=== PATIENT | male | born 1940 | race Caucasian/White ===

== ENCOUNTER → 2021-09-04 08:46 | Outpatient (BNVA) | payer MEDICAID, SELFPAY | PROVIDERS: PCP Internal Medicine; Visit Provider Nurse Practitioner Family | DX: F09 Unspecified mental disorder due to known physiological condition (principal); F41.1 Generalized anxiety disorder; C61 Malignant neoplasm of prostate; I10 Essential (primary) hypertension; Z79.899 Other long term (current) drug therapy | CPT/HCPCS: 99202 ==

== ENCOUNTER → 2021-12-10 10:44 | Outpatient (BNVA) | payer MEDICAID, SELFPAY | PROVIDERS: PCP Internal Medicine; Visit Provider Nurse Practitioner Family | DX: F09 Unspecified mental disorder due to known physiological condition (principal); F41.1 Generalized anxiety disorder; Z79.899 Other long term (current) drug therapy | CPT/HCPCS: 99212 ==

== ENCOUNTER → 2022-03-10 11:38 | Outpatient (BNVA) | payer MEDICAID, SELFPAY | PROVIDERS: PCP Internal Medicine; Visit Provider Nurse Practitioner Family | DX: F09 Unspecified mental disorder due to known physiological condition (principal); F41.1 Generalized anxiety disorder; M79.604 Pain in right leg | CPT/HCPCS: 99212 ==

== ENCOUNTER → 2022-08-25 12:58 | Outpatient (BNVA) | payer MEDICAID, SELFPAY | PROVIDERS: PCP Internal Medicine; Visit Provider Nurse Practitioner Family | DX: R41.89 Other symptoms and signs involving cognitive functions and awareness (principal); F41.1 Generalized anxiety disorder; Z79.899 Other long term (current) drug therapy | CPT/HCPCS: 99212 ==

== ENCOUNTER 2023-03-23 13:02 | Outpatient (AMB) | payer MEDICAID, SELFPAY ==
--- NOTE | 2023-03-23 13:07 | MHC.OFFVIS ---
Intake Vital Signs 03/23/23 13:09 Height 5 ft 2 in BP 102/68 Blood Pressure Location Rt brachial Position Sitting Respiration 15 Pulse 61 Pulse Source Pulse Oximeter Pulse Oximetry (%) 97 Oxygen Delivery Method Room Air Intake Visit Reasons: follow up/confirmed Intake Note: Pt presents to the office for 7 month follow up for cognitive dysfunction. Pt reports He was admitted to [facility] s/p stroke x2 as well as a brain bleed on January 09, 2023. He is here with his daughter Daja Renee who is also his historian. She reports he has been doing much better since his last visit. Gait had become slighty improved until his stroke. His memory, however, is worse. He's totally confused . He is still able to identify his daughter and , but it has become difficult for him to identify other people. His anxiety is worse too. He had been getting anxiety daily until last week when his PCP prescribed a new anxiety med. He has also been very nauseous. Allergies ibuprofen [From Motrin] Adverse Reaction (Mild, Verified 03/23/23 13:08) Abdominal Pain Medication List - Last Reconciled 03/23/23 by KEVIN Ferguson amlodipine 5 mg PO DAILY apixaban (Eliquis) 2.5 mg PO BID cetirizine 10 mg PO DAILY diclofenac sodium 3% 1 appl topical BID PRN 30 days diphenoxylate-atropine 2.5-0.025 mg 2 tabs PO QID escitalopram oxalate 20 mg PO DAILY 90 days flurbiprofen sodium 0.03% 1 drp ophthalmic (eye) QAM ipratropium-albuterol 20-100 mcg/actuation (Combivent Respimat) 1 puff PO QID latanoprost 0.005% 1 drp ophthalmic (eye) BEDTIME lidocaine 5% (Lidoderm) 1 patch topical DAILY 30 days lorazepam 0.5 mg PO BEDTIME PRN losartan 50 mg PO DAILY meclizine 25 mg PO DAILY PRN memantine 7 mg PO DAILY 90 days montelukast 10 mg PO BEDTIME omeprazole 20 mg PO DAILY ondansetron 4 mg PO Q8H timolol maleate 0.5% 1 drp ophthalmic (eye) QAM HPI HPI Comments History of Present Illness Details 82-yr-old male presents for f/u visit, accompanied by his dtr and . Pt's dtr provides majority of history. Drt states that in early Jan, pt began to have acute onset of not feeling well, dizziness, and N/V w/o preceding known infection or injury. Pt was brought to [facility] ER, where work-up was c/w an intraventricular hemorhagic stroke and right splenium and left temporal infarct, as well as multiple punctuate hemosiderin staining throughout bilateral supratentorial and infratentorial brain regions and mild hydrocephalus. There was mention of possible a-fib when pt was in ICU- however this was not confirmed. Pt was managed medically and discharged home in mid-Jan. Pt's dtr stated that pt had become very weak after the hospitalization, but he was starting to return to his baseline. However, in early Feb, pt had an acute episode of dyspnea and near syncope- dtr thought he might , so he was brought back to [facility]. Work-up was positive for acute PE. Brain MRI showed reduction in previous IVH. Pt was managed medically- ASA was switched to Eliquis. Pt has since returned home w/ VNA services. Since returning home, pt has continued to have significant nausea and dizziness, especially elicited w/ movement. PCP has provided zofran and meclizine which do help and he can get around better. Pt is more photophobic. Today he does endorse a having more headaches, although unable to provide specifics d/t memory issues. He is still needing more assist overall. He is very anxious and worried that he can not travel to the to visit his dtr who has special needs. Denies any other new s/s since the CVAs and PE- no dysphagia. BP has been stable. Pt is scheduled for a f/u brain MRI. 02/06/23, Chest CTA IMPRESSION: 1. Acute pulmonary embolism. The right ventricle is enlarged compared to the left ventricle, which would meet CT criteria for submassive PE; however, given small clot burden, the etiology for right ventricular enlargement is thought to be unrelated. 2. Mild diffuse esophagitis. 3. Lung nodules measuring 5 mm and 6 mm. Follow-up CT at 6-12 months, then CT at 18-24 months and if unchanged no further followup per Guidelines for Management of Incidental Pulmonary Nodules Detected on CT Images: From the Fleischner [employer] 02/05/23, Brain MRI w/o IMPRESSION: 1. No acute infarct, mass, new hemorrhage, or other acute intracranial abnormality. 2. Decreased conspicuity of previously seen infarcts in the right splenium and left medial temporal lobe, consistent with expected evolution. 3. Interval decrease in focal hemorrhage in the cerebellar vermis. There is residual 1 cm T1 hypointense focus in the cerebellar vermis which could reflect an underlying cavernous malformation, though accurate characterization is slightly suboptimal due to motion artifact. 4. Multiple sites of chronic hemorrhage in bilateral cerebral hemispheres, including areas of sulcal susceptibility artifact suggesting superficial siderosis. Findings could reflect sequela of cerebral amyloid angiopathy. 5. Mild T2/FLAIR hyperintense foci in the white matter, nonspecific but most likely reflecting chronic small vessel disease. 01/12/23, MRI Brain W+W/O Contrast IMPRESSION: There is an approximately 1.2 x 1.2 x 1 cm irregular shaped hemorrhagic lesion within the vermis of the cerebellum. This lesion shows mild heterogeneous enhancement. Although although this could be due to hypertension, however an underlying hemorrhagic tumor or vascular malformation cannot be excluded. Repeat study is suggested when the hematoma and mass effect subside. There is a 5 mm area of acute infarct within the right-sided splenium of corpus callosum and left medial temporal white matter respectively. No associated hemorrhage or significant mass effect. Addendum: Multiple punctate hemosiderin are seen throughout the supratentorial and infratentorial brain which could be due to old hemorrhages. 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 There are also hemosiderin staining along the sulci of bilateral frontoparietal lobes as well as in the dependent portion of bilateral lateral ventricles which could represent hemosiderosis. 01/09/23, head/neck CTA: IMPRESSION: 1. Intraventricular hemorrhage, centered in the fourth ventricle, without evidence of associated aneurysm or vascular malformation. 2. No proximal occlusion or high grade stenosis in the major arteries of the head and neck. 01/09/23, head CT: IMPRESSION: Intraventricular hemorrhage involving the third and fourth ventricles. [facility] Medical History (Updated 03/23/23 @ 22:43 by KEVIN Ferguson) Colonic polyp Hypertension Prostate cancer Literacy level of illiterate Pulmonary nodules/lesions, multiple GERD (gastroesophageal reflux disease) Chronic diarrhea Seasonal allergies Vitamin D deficiency Surgical History (Updated 03/23/23 @ 13:24 by Tresa Jhaveri [facility]) H/O colonoscopy History of eye surgery History of cancer surgery Hx of sinus surgery Family History Other Cancer Social History Household Members: Family Household Members Other:: daughter Alcohol intake: former Patient Tobacco Use Status: Former Tobacco user Current occupational status: retired and disabled Review of Systems Const All systems reviewed & are unremarkable except as noted in HPI and below Physical Exam Vital Signs: Last Vital Signs Pulse 61 03/23/23 13:09 Resp 15 03/23/23 13:09 BP 102/68 03/23/23 13:09 Pulse Ox 97 03/23/23 13:09 Oxygen Delivery Method Room Air 03/23/23 13:09 Const General: cooperative and no acute distress Orientation/consciousness: oriented to person HEENT Head: Yes normocephalic Resp Effort & Inspection: normal respiratory effort and able to speak in complete sentences Neuro General: oriented to person, gait normal and deep tendon reflexes 2+ bilaterally Cranial nerves: Yes Individual cranial nerve findings present (Pupils asymmetric, legally blind in left eye) V: normal, : normal, VII: abnormal (lower facial assymetry), VIII: normal, IX: normal, X: normal, XI: normal and XII: normal Cognition (Neuro): normal cognition Motor exam (neuro): 5/5 motor strength present throughout Psych Appearance: grossly normal Affect: normal affect Attitude: cooperative Assessment & Plan Assessment & Plan (1) Non-traumatic intracerebral ventricular hemorrhage: Code(s): I61.5 - Nontraumatic intracerebral hemorrhage, intraventricular (2) CVA (cerebral vascular accident): Code(s): I63.9 - Cerebral infarction, unspecified (3) [place] (generalized anxiety disorder): Code(s): F41.1 - Generalized anxiety disorder (4) Dementia: Code(s): F03.90 - Unspecified dementia, unspecified severity, without behavioral disturbance, psychotic disturbance, mood disturbance, and anxiety (5) Headache: Comment: post-stroke Code(s): R51.9 - Headache, unspecified (6) Dizziness: Code(s): R42 - Dizziness and giddiness (7) Pulmonary embolism: Code(s): I26.99 - Other pulmonary embolism without acute cor pulmonale Plan Reviewed [facility] notes and work-up. F/u brain MRI as scheduled. Continue Eliquis for now. Continue home BP med regimen- BP is normotensive. Reviewed light sensitivity tips. Start Riboflavin and Magnesium- may help headcahes and photophobia. May continue Meclizine, Zofran, Tylenol prn. Advised to avoid any NSAIDs. Advised to seek urgent medical attention if pt falls, hits head etc d/t Eliquis use. Pt would benefit from being able to see his dtr- however I cannot clear pt medically to travel long distance or via plane at this time. Dtr asks that we write letter to this effect. f/u in clinic in 3 months or sooner prn. Medications: New riboflavin (vitamin B2) 400 mg PO DAILY 30 days 30 tabs 6RF magnesium oxide may hold for loose stools 400 mg PO BEDTIME 30 days 30 tabs 6RF Coding Level of Care Code Est Pt Level 5 (02848) Diagnoses Non-traumatic intracerebral ventricular hemorrhage I61.5 CVA (cerebral vascular accident) I63.9 [place] (generalized anxiety disorder) F41.1 Dementia F03.90 Headache R51.9 Dizziness R42 Pulmonary embolism I26.99 Time Spent (min) 65 Comment > 45 minutes spent w/ pt and family, > 20 min spent reviewing hospital records/documenting
[2023-03-23 13:09] VITALS: BP 102/68; PULSE 61; RESP 15; O2SAT 97
== END 2023-03-23 13:59 | disposition home or self-care (01) ==
PROVIDERS: PCP Internal Medicine; Visit Provider Nurse Practitioner Family
DX: I69.111 Memory deficit following nontraumatic intracerebral hemorrhage (principal); I69.118 Other symptoms and signs involving cognitive functions following nontraumatic intracerebral hemorrhage; F03.94 Unspecified dementia, unspecified severity, with anxiety; I26.99 Other pulmonary embolism without acute cor pulmonale; R42 Dizziness and giddiness
CPT/HCPCS: 99215

== ENCOUNTER → 2023-03-23 13:02 | Outpatient (BNVA) | payer MEDICAID, SELFPAY | PROVIDERS: PCP Internal Medicine; Visit Provider Nurse Practitioner Family | DX: I61.5 Nontraumatic intracerebral hemorrhage, intraventricular (principal); I26.99 Other pulmonary embolism without acute cor pulmonale; F41.1 Generalized anxiety disorder; F03.90 Unspecified dementia, unspecified severity, without behavioral disturbance, psychotic disturbance, mood disturbance, and anxiety; R51.9 Headache, unspecified; R42 Dizziness and giddiness; Z86.73 Personal history of transient ischemic attack (TIA), and cerebral infarction without residual deficits | CPT/HCPCS: 99212 ==

== ENCOUNTER 2023-07-05 13:00 | Outpatient (AMB) | payer MEDICAID, SELFPAY ==
[2023-07-05 13:07] VITALS: PULSE 56; O2SAT 98
--- NOTE | 2023-07-05 13:07 | MHC.OFFVIS ---
Intake Vital Signs 07/05/23 13:07 Height 5 ft 2 in Pulse 56 Pulse Source Pulse Oximeter Pulse Oximetry (%) 98 Oxygen Delivery Method Room Air Intake Visit Reasons: 3 mnts f/u appt - CONF Intake Note: Patient presents for 3 month follow up. He wasn't sleeping well so the doctor put him on 5mg of melatonin Allergies ibuprofen [From Motrin] Adverse Reaction (Mild, Verified 07/05/23 13:11) Abdominal Pain HPI HPI Comments History of Present Illness Details 83-yr-old male presents for f/u visit, accompanied by his dtr. Pt has been doing better overall. However he can become more stressed and anxious, especially as his daughter will be returning to the [facility] [place]. Patient would like to be able to return to the [facility] himself. Cognition is stable- can be confused. Does need help w/ ADLs. He has started Melatonin for sleep. 04/26/23, [facility], MRI Brain W+W/O Contrast: FINDINGS: The ventricles, cistern and sulci are diffusely prominent, consistent with generalized age-related atrophy. There is no acute intracranial hemorrhage, tumor or acute infarct. Multiple curvilinear areas of susceptibility artifacts are seen within bilateral cerebral sulci consistent with the superficial siderosis which could be due to prior subarachnoid hemorrhages. Additional punctate areas of microhemorrhages are seen within bilateral cerebral hemispheres. There is a focal small area of susceptibility artifacts within the cerebellum vermis which could be due to prior hemorrhage. Multiple patchy and small areas of hyperintense T2 and FLAIR signals are seen in the periventricular and subcortical white matters bilaterally, which are nonspecific but may represent chronic small vessels ischemic disease. Please correlate clinically. No abnormal enhancement is seen. The findings remain unchanged as compared to prior study. There are normal flow voids within the major intracranial vessels. Status post prior maxillary antrectomies. There is mild mucosal thickening within frontal, ethmoid and maxillary sinuses. These sinuses also contain multiple mucus retention cysts of various sizes. Bilateral mastoid air cells are clear. IMPRESSION: No acute pathology or abnormal enhancement is seen in the brain parenchyma. Chronic findings as described above, stable. [facility] Medical History (Updated 03/23/23 @ 22:43 by KEVIN Ferguson) Colonic polyp Hypertension Prostate cancer Literacy level of illiterate Pulmonary nodules/lesions, multiple GERD (gastroesophageal reflux disease) Chronic diarrhea Seasonal allergies Vitamin D deficiency Surgical History H/O colonoscopy History of eye surgery History of cancer surgery Hx of sinus surgery Family History Other Cancer Social History Household Members: Family Household Members Other:: daughter Alcohol intake: former Patient Tobacco Use Status: Former Tobacco user Current occupational status: retired and disabled Physical Exam Vital Signs: Last Vital Signs Pulse 56 07/05/23 13:07 Pulse Ox 98 07/05/23 13:07 Oxygen Delivery Method Room Air 07/05/23 13:07 Const General: cooperative and no acute distress Resp Effort & Inspection: normal respiratory effort and able to speak in complete sentences Neuro Other: Oriented to person Responding appropriately to simple questions Sitting upright in wheelchair Pleasant affect Psych Appearance: grossly normal Affect: normal affect Attitude: cooperative Assessment & Plan Assessment & Plan (1) Dementia: Code(s): F03.90 - Unspecified dementia, unspecified severity, without behavioral disturbance, psychotic disturbance, mood disturbance, and anxiety (2) Headache: Comment: post-stroke Code(s): R51.9 - Headache, unspecified (3) Dizziness: Code(s): R42 - Dizziness and giddiness Plan Reviewed interval brain MRI- no acute findings. Stable findings c/w superficial siderosis which could be due to prior subarachnoid hemorrhages; punctate areas of microhemorrhages in bilateral cerebral hemispheres, and possibly in the cerebellum vermis.. Multiple patchy and small areas of hyperintense T2 and FLAIR signals in the periventricular and subcortical white matters bilaterally, which are c/w chronic small vessels ischemic disease. May use Melatonin for sleep. Continue Eliquis for now. Continue home BP med regimen- BP is normotensive. Continue Riboflavin and Magnesium- for headaches and photophobia. May continue Meclizine, Zofran, Tylenol prn. Avoid any NSAIDs. f/u in clinic in 3 months or sooner prn. Coding Level of Care Code Est Pt Level 4 (32948) Diagnoses Dementia F03.90 Headache R51.9 Dizziness R42
== END 2023-07-05 13:55 | disposition home or self-care (01) ==
PROVIDERS: PCP Internal Medicine; Visit Provider Nurse Practitioner Family
DX: F03.90 Unspecified dementia, unspecified severity, without behavioral disturbance, psychotic disturbance, mood disturbance, and anxiety (principal); R51.9 Headache, unspecified; R42 Dizziness and giddiness
CPT/HCPCS: 99214

== ENCOUNTER → 2023-07-05 13:00 | Outpatient (BNVA) | payer MEDICAID, SELFPAY | PROVIDERS: PCP Internal Medicine; Visit Provider Nurse Practitioner Family | DX: F03.90 Unspecified dementia, unspecified severity, without behavioral disturbance, psychotic disturbance, mood disturbance, and anxiety (principal); R51.9 Headache, unspecified; R42 Dizziness and giddiness; Z79.01 Long term (current) use of anticoagulants; Z79.899 Other long term (current) drug therapy | CPT/HCPCS: 99212 ==

== ENCOUNTER 2023-11-01 13:00 | Outpatient (AMB) | payer MEDICAID, SELFPAY ==
--- NOTE | 2023-11-01 13:09 | MHC.OFFVIS ---
Vital Signs 11/01/23 13:10 Height 5 ft 2 in BP 102/76 Blood Pressure Location Rt brachial Position Sitting Pulse 61 Pulse Source Pulse Oximeter Pulse Oximetry (%) 100 Oxygen Delivery Method Nasal Cannula Intake Visit Reasons: 4 mo f/u-LVM Intake Note: Patient presents for 4 month follow up. three days ago he was not okay deressed and crying alot. Dry Chain Worker Required: Yes Dry Chain Worker Name: ilbia pagan Allergies ibuprofen [From Motrin] Adverse Reaction (Mild, Verified 11/01/23 13:17) Abdominal Pain Medication List - Last Reconciled 11/01/23 by Freda Mueller, KEVIN amlodipine 5 mg PO DAILY apixaban (Eliquis) 2.5 mg PO BID cetirizine 10 mg PO DAILY diclofenac sodium 3% 1 appl topical BID PRN 30 days diphenoxylate-atropine 2.5-0.025 mg 2 tabs PO QID escitalopram oxalate 20 mg PO DAILY 90 days flurbiprofen sodium 0.03% 1 drp ophthalmic (eye) QAM ipratropium-albuterol 20-100 mcg/actuation (Combivent Respimat) 1 puff PO QID latanoprost 0.005% 1 drp ophthalmic (eye) BEDTIME lidocaine 5% (Lidoderm) 1 patch topical DAILY 30 days lorazepam 0.5 mg PO BEDTIME PRN losartan 50 mg PO DAILY magnesium oxide 400 mg PO BEDTIME 30 days meclizine 25 mg PO DAILY PRN memantine 7 mg PO DAILY 90 days montelukast 10 mg PO BEDTIME omeprazole 20 mg PO DAILY ondansetron 4 mg PO Q8H riboflavin (vitamin B2) 400 mg PO DAILY 30 days timolol maleate 0.5% 1 drp ophthalmic (eye) QAM HPI Comments Details: 83-yr-old male presents for f/u visit, accompanied by his and dtr. Pt was started on home supplemental O2 for hypoxemia induced by activity. As he continues to have hypoxemia and SOB at times s/p PE in Feb 2023. Per dtr, Today, dtr states today pt is doing well. However, overall his cognition and behavior is worsening. A few days ago, he was crying most of the time. He was not eating, drinking, and sleeping well. When he is more confused he does know where the bathroom or bedroom is. He often wants to leave, to return to the [place] where his dtr is. He has periods of more irritability and anger- refusing meds/food/fluids at times. Last week, he stood outside for 4 hours in the hot weather- hoping to be able to leave. Family was unable to redirect him to come inside for those hours- he would not take fluids or food during this time. [facility] Medical History (Updated 03/23/23 @ 22:43 by KEVIN Ferguson) Colonic polyp Hypertension Prostate cancer Literacy level of illiterate Pulmonary nodules/lesions, multiple GERD (gastroesophageal reflux disease) Chronic diarrhea Seasonal allergies Vitamin D deficiency Surgical History H/O colonoscopy History of eye surgery History of cancer surgery Hx of sinus surgery Family History Other Cancer Social History Household Members: Family Household Members Other:: daughter Alcohol intake: former Patient Tobacco Use Status: Former Tobacco user Current occupational status: retired and disabled Physical Exam Vital Signs: Last Vital Signs Pulse 61 11/01/23 13:10 BP 102/76 11/01/23 13:10 Pulse Ox 100 11/01/23 13:10 Oxygen Delivery Method Nasal Cannula 11/01/23 13:10 Const General: cooperative and no acute distress Orientation/consciousness: oriented to person Resp Effort & Inspection: normal respiratory effort and able to speak in complete sentences Neuro General: oriented to person Cognition (Neuro): normal cognition Psych Appearance: grossly normal Affect: normal affect Attitude: cooperative Assessment & Plan Assessment & Plan (1) Cognitive dysfunction: Comment: STM loss, repeating, ? confusion vs visual hallucination- ? Roland Bonnet Syndrome. Brain MRI w/ moderate white matter changes and cerebral volume loss- raises suspicion for vascular dementia process. Code(s): F09 - Unspecified mental disorder due to known physiological condition Category: Medical (2) Dementia: Code(s): F03.90 - Unspecified dementia, unspecified severity, without behavioral disturbance, psychotic disturbance, mood disturbance, and anxiety Category: Medical (3) CVA (cerebral vascular accident): Code(s): I63.9 - Cerebral infarction, unspecified Category: Medical (4) [place] (generalized anxiety disorder): Code(s): F41.1 - Generalized anxiety disorder Category: Medical Plan Will request f/u brain MRI w/wo- as cognition and behaviors is worsening, to assess for interval intracerebral changes in superficial siderosis, white matter changes. Advised to increase Memantine fro 7mg to 14mg qd. Will f/u in 3-4 wks, if tolerated, increase the dose. Pulmonary f/u as scheduled. Home O2 as ordered. Continue Amlodipine, losartan, Eliquis. BP normotensive. Continue 27/12 supportive care. Future considerations- adding anti-anxiety agent. f/u in 3-6 months or sooner prn, Orders: Orders MR head/brain wo/w con Today F03.90 - Unspecified dementia, unspecified severity, without behavioral disturbance, psychotic disturbance, mood disturbance, and anxiety, F09 - Unspecified mental disorder due to known physiological condition, F41.1 - Generalized anxiety disorder, I63.9 - Cerebral infarction, unspecified Medications: New memantine 14 mg PO DAILY 30 days 30 ea 0RF Discontinued memantine Discontinued Reason: Doctor's Order 7 mg PO DAILY 90 days 90 ea 1RF Coding Level of Care Code Est Pt Level 4 (87242) Diagnoses Cognitive dysfunction F09 Dementia F03.90 CVA (cerebral vascular accident) I63.9 [place] (generalized anxiety disorder) F41.1
[2023-11-01 13:10] VITALS: BP 102/76; PULSE 61; O2SAT 100
== END 2023-11-01 13:48 | disposition home or self-care (01) ==
PROVIDERS: PCP Internal Medicine; Visit Provider Nurse Practitioner Family
DX: F01.54 Vascular dementia, unspecified severity, with anxiety (principal); F01.518 Vascular dementia, unspecified severity, with other behavioral disturbance; I69.30 Unspecified sequelae of cerebral infarction
CPT/HCPCS: 99214

== ENCOUNTER → 2023-11-01 13:00 | Outpatient (BNVA) | payer MEDICAID, SELFPAY | PROVIDERS: PCP Internal Medicine; Visit Provider Nurse Practitioner Family | DX: F09 Unspecified mental disorder due to known physiological condition (principal); F03.90 Unspecified dementia, unspecified severity, without behavioral disturbance, psychotic disturbance, mood disturbance, and anxiety; I63.9 Cerebral infarction, unspecified; F41.1 Generalized anxiety disorder | CPT/HCPCS: 99212 ==

== ENCOUNTER 2024-02-02 13:37 | Outpatient (AMB) | payer MEDICAID, SELFPAY ==
--- NOTE | 2024-02-02 13:51 | MHC.OFFVIS ---
Vital Signs 02/02/24 13:59 Height 5 ft 2 in BP 122/84 Blood Pressure Location Rt brachial Position Sitting Pulse 61 Pulse Source Pulse Oximeter Pulse Oximetry (%) 97 Oxygen Delivery Method Room Air Intake Visit Reasons: 3 month F/U - Conf Intake Note: Patient presents for 3 month follow up. patient had anxiety attacks for the past couple days wanting to open doors and leave Allergies ibuprofen [From Motrin] Adverse Reaction (Mild, Verified 02/02/24 13:59) Abdominal Pain Medication List - Last Reconciled 02/02/24 by KEVIN Ferguson amlodipine 5 mg PO DAILY apixaban (Eliquis) 2.5 mg PO BID cetirizine 10 mg PO DAILY diclofenac sodium 3% 1 appl topical BID PRN 30 days diphenoxylate-atropine 2.5-0.025 mg 2 tabs PO QID escitalopram oxalate 20 mg PO DAILY 90 days flurbiprofen sodium 0.03% 1 drp ophthalmic (eye) QAM ipratropium-albuterol 20-100 mcg/actuation (Combivent Respimat) 1 puff PO QID latanoprost 0.005% 1 drp ophthalmic (eye) BEDTIME lidocaine 5% (Lidoderm) 1 patch topical DAILY 30 days lorazepam 0.5 mg PO BEDTIME PRN losartan 50 mg PO DAILY magnesium oxide 400 mg PO BEDTIME 30 days meclizine 25 mg PO DAILY PRN melatonin 5 - 10 mg (1 - 2 x 5 mg) PO BEDTIME PRN 90 days memantine 28 mg PO DAILY 90 days montelukast 10 mg PO BEDTIME omeprazole 20 mg PO DAILY ondansetron 4 mg PO Q8H quetiapine 12.5 - 25 mg (0.5 - 1 x 25 mg) PO BID PRN 90 days riboflavin (vitamin B2) 400 mg PO DAILY 90 days timolol maleate 0.5% 1 drp ophthalmic (eye) QAM HPI Comments Details: 83-yr-old male presents for f/u visit. Pt's dtr reports pt's memory is better since starting Memantine ER. He has slowly increased the dose from 7mg ER to 21mg ER, which he is tolerating well. Pt's dtr reports he has some better days and other days that are not as good. Pt does have days where he is more forgetful, may misplace some of his things. He has had episodes of increased anxiety- his O2 and HR reduces, and he becomes more confused and weak. Dtr gives him some sugar or apple juice which helps. He has been hallucinating less since starting Quetiapine 12.5mg qhs. Rarely has used extra 1/2 tab in am if very agitated or hallucinating. Sometimes, he has RLQ to LLQ abd discomfort. Does have BMs. Sometimes has abd bloating. His family has signed a DNR form. Pt would still like to [place] 11/[place], Brain MRI w/wo: IMPRESSION: Punctate subacute infarcts in the right temporal and occipital region. Since the previous exam, numerous (more than 10) scattered punctate chronic microhemorrhage is noted throughout the supratentorial compartment, suggesting cerebral amyloid angiopathy. The areas of superficial siderosis as well as several other scattered microhemorrhages as well as old hemorrhage versus a cavernous malformation in the superior cerebellar vermis are stable compared to the previous exam. Findings suggest underlying cerebral amyloid angiopathy. Nonspecific white matter signal changes most likely reflecting chronic small vessel disease which are similar to prior. [facility] Medical History (Updated 03/23/23 @ 22:43 by KEVIN Ferguson) Colonic polyp Hypertension Prostate cancer Literacy level of illiterate Pulmonary nodules/lesions, multiple GERD (gastroesophageal reflux disease) Chronic diarrhea Seasonal allergies Vitamin D deficiency Surgical History H/O colonoscopy History of eye surgery History of cancer surgery Hx of sinus surgery Family History Other Cancer Social History Household Members: Family Household Members Other:: daughter Alcohol intake: former Patient Tobacco Use Status: Former Tobacco user Current occupational status: retired and disabled Review of Systems Const All systems reviewed & are unremarkable except as noted in HPI and below Physical Exam Vital Signs: Last Vital Signs Pulse 61 02/02/24 13:59 BP 122/84 02/02/24 13:59 Pulse Ox 97 02/02/24 13:59 Oxygen Delivery Method Room Air 02/02/24 13:59 Const General: cooperative and no acute distress Resp Effort & Inspection: normal respiratory effort and able to speak in complete sentences Neuro Other: Pt Alert, responding appropriately to simple questions. Pt able to ask simple questions. Sitting upright in w/c. Psych Attitude: cooperative Assessment & Plan Assessment & Plan (1) Dementia: Code(s): F03.90 - Unspecified dementia, unspecified severity, without behavioral disturbance, psychotic disturbance, mood disturbance, and anxiety Category: Medical (2) Non-traumatic intracerebral ventricular hemorrhage: Code(s): I61.5 - Nontraumatic intracerebral hemorrhage, intraventricular Category: Medical (3) CVA (cerebral vascular accident): Code(s): I63.9 - Cerebral infarction, unspecified Category: Medical Plan Updated brain MRI results c/w Cerebral amyloid angiopathy Pt is on low dose Eliquis per hematology for h/o mx PEs. Continue home ant-HTN tx. BP is normotensive. Recent lipid panel shows mildly elevated lipids- monitor. If worsens consider adding statin. Increase Memantine from 21mg qd to 28mg qd. Continue quetiapine 12.5mg qhs and 12.5mg qd prn. Continue Melatonin 5-10mg qhs. Pulmonary f/u as scheduled. Home O2 as ordered. Continue 24/ supportive care. Pt asking if he can fly to the [place]- advised that will known CAA there is risk for hemorrhagic stroke. Medications: New memantine 28 mg PO DAILY 90 ea 1RF 90 days Changed From quetiapine 12.5 - 25 mg (0.5 - 1 x 25 mg) PO BID 30 days PRN 30 tabs 3RF agitation or hallucinations To quetiapine 12.5 - 25 mg (0.5 - 1 x 25 mg) PO BID PRN 90 tabs 1RF agitation or hallucinations 90 days Discontinued memantine Discontinued Reason: Doctor's Order 21 mg PO ONCE 90 days 90 ea 1RF Coding Level of Care Code Est Pt Level 4 (41379) Diagnoses Dementia F03.90 Non-traumatic intracerebral ventricular hemorrhage I61.5 CVA (cerebral vascular accident) I63.9
[2024-02-02 13:59] VITALS: BP 122/84; PULSE 61; O2SAT 97
== END 2024-02-02 14:45 | disposition home or self-care (01) ==
PROVIDERS: PCP Internal Medicine; Visit Provider Nurse Practitioner Family
DX: F03.90 Unspecified dementia, unspecified severity, without behavioral disturbance, psychotic disturbance, mood disturbance, and anxiety (principal); I61.5 Nontraumatic intracerebral hemorrhage, intraventricular; I63.9 Cerebral infarction, unspecified
CPT/HCPCS: 99214

== ENCOUNTER → 2024-02-02 13:37 | Outpatient (BNVA) | payer MEDICAID, SELFPAY | PROVIDERS: PCP Internal Medicine; Visit Provider Nurse Practitioner Family | DX: F03.90 Unspecified dementia, unspecified severity, without behavioral disturbance, psychotic disturbance, mood disturbance, and anxiety (principal); I61.5 Nontraumatic intracerebral hemorrhage, intraventricular; I63.9 Cerebral infarction, unspecified | CPT/HCPCS: 99212 ==

== ENCOUNTER 2025-01-01 11:48 | Outpatient (AMB) | payer MEDICAID, SELFPAY ==
--- NOTE | 2025-01-01 08:35 | A.OFFVIS_ITS ---
Intake Visit Reasons: Follow up Intake Note: Patient presents follow up Dementia medication. His anxiety is better. No concerns today, but needs refills. Patient will be accompanied with granddaughter, Maryjane. [employer] Required: Yes Director [employer] Services: [employer] Offered & Declined [employer] Name: Granddtr assists w/ interpreta Allergies ibuprofen (From Motrin) Adverse Reaction (Mild, Verified 01/01/25 11:31) Abdominal Pain Medication List - Last Reconciled 01/01/25 by KEVIN Ferguson amlodipine 5 mg PO DAILY apixaban (Eliquis) 2.5 mg PO BID calcium carbonate (Tums) 400 mg (2 x 200 mg calcium (500 mg)) PO Q4-6H PRN 30 days cetirizine 10 mg PO DAILY diclofenac sodium 3% 1 appl topical BID PRN 30 days diphenoxylate-atropine 2.5-0.025 mg 2 tabs PO QID escitalopram oxalate 20 mg PO DAILY 90 days flurbiprofen sodium 0.03% 1 drp ophthalmic (eye) QAM hydralazine 10 mg PO BID ipratropium-albuterol 20-100 mcg/actuation (Combivent Respimat) 1 puff PO QID latanoprost 0.005% 1 drp ophthalmic (eye) BEDTIME lidocaine 5% (Lidoderm) 1 patch topical DAILY 30 days lorazepam 0.5 mg PO BEDTIME PRN losartan 50 mg PO DAILY magnesium oxide 400 mg PO BEDTIME 90 days meclizine 25 mg PO DAILY PRN melatonin 5 - 10 mg (1 - 2 x 5 mg) PO BEDTIME PRN 90 days memantine 28 mg PO DAILY 90 days mirabegron ER (Myrbetriq) 25 mg PO DAILY montelukast 10 mg PO BEDTIME omeprazole 20 mg PO DAILY ondansetron 4 mg PO Q8H pantoprazole 40 mg PO DAILY quetiapine 12.5 - 25 mg (0.5 - 1 x 25 mg) PO BID PRN 90 days riboflavin (vitamin B2) 400 mg PO DAILY 90 days tamsulosin 0.4 mg PO DAILY timolol maleate 0.5% 1 drp ophthalmic (eye) QAM HPI Comments Details: 84-yr-old male presents for f/u televideo visit for dementia. Pt is accompanied by his grandtr, Maryjane, who assists w/ history. They report pt?s memory is stable on Memantine er 28mg qd. LTM is better than STM. They report pt?s episodes of anxiety and agitation have reduced in frequency and severity. Granddtr offers massage, breathing exercises, and Oxygen, which is helpful. He has been hallucinating less since starting Quetiapine 12.5mg qhs. Rarely has used extra 1/2 tab in am if very agitated or hallucinating. Continues to have abd bloating- using scheduled omeprazole w/ some effect. Can have some headaches and neck discomfort- has not had the B2 and Mag in a while. For chronic back pain, using diclofenac gel or lidocaine patches as needed-which helps some. His family has signed a DNR form. 11/2023, Brain MRI w/wo: IMPRESSION: Punctate subacute infarcts in the right temporal and occipital region. Since the previous exam, numerous (more than 10) scattered punctate chronic microhemorrhage is noted throughout the supratentorial compartment, suggesting cerebral amyloid angiopathy. The areas of superficial siderosis as well as several other scattered microhemorrhages as well as old hemorrhage versus a cavernous malformation in the superior cerebellar vermis are stable compared to the previous exam. Findings suggest underlying cerebral amyloid angiopathy. Nonspecific white matter signal changes most likely reflecting chronic small vessel disease which are similar to prior. [facility] Medical History Colonic polyp Hypertension Prostate cancer Literacy level of illiterate Pulmonary nodules/lesions, multiple GERD (gastroesophageal reflux disease) Chronic diarrhea Seasonal allergies Vitamin D deficiency Surgical History H/O colonoscopy History of eye surgery History of cancer surgery Hx of sinus surgery Family History Other Cancer Social History Household Members: Family Household Members Other:: daughter Alcohol intake: former Patient Tobacco Use Status: Former Tobacco user Current occupational status: retired and disabled Physical Exam Const General: cooperative and no acute distress Resp Effort & Inspection: normal respiratory effort and able to speak in complete sentences Neuro Other: Pt Alert, responding appropriately to simple questions. Pt able to ask simple questions. Sitting upright on couch Psych Attitude: cooperative Telehealth Telehealth Telehealth Platform: [facility] Location of provider rendering services: practice address Location of patient: address on file Patient Identification confirmed using: Name, : Yes Telehealth method: video Patient verbally consented to treatment: Yes Patient verbally consented to billing insurance company: Yes Patient informed of any privacy concerns related to visit: No Minutes spent on Phone/Video with Pt.: 13 Assessment & Plan Assessment & Plan (1) Dementia: Code(s): F03.90 - Unspecified dementia, unspecified severity, without behavioral disturbance, psychotic disturbance, mood disturbance, and anxiety Category: Medical Qualifiers: Dementia type: vascular dementia Dementia severity: moderate Dementia behavioral or psychological symptom: with mood disturbance Qualified Code(s): F01.B3 - Vascular dementia, moderate, with mood disturbance (2) Non-traumatic intracerebral ventricular hemorrhage: Code(s): I61.5 - Nontraumatic intracerebral hemorrhage, intraventricular Category: Medical (3) CVA (cerebral vascular accident): Code(s): I63.9 - Cerebral infarction, unspecified Category: Medical Qualifiers: CVA mechanism: other Qualified Code(s): I63.89 - Other cerebral infarction Plan For dementia: 2023 brain MRI results c/w Cerebral amyloid angiopathy Pt is on low dose Eliquis per hematology for h/o mx PEs. Continue home ant-HTN tx. BP is normotensive. Continue to optimize CV risk factors. Continue Memantine 28mg qd. Continue quetiapine 12.5mg qhs and 12.5mg qd prn. Continue Melatonin 5-10mg qhs. Pulmonary f/u as scheduled. Home O2 as ordered. Continue 24/7 supportive care. For headache, neck pain, back pain: Resume riboflavin 400 mg daily in the morning Resume magnesium 400 mg daily at bedtime Continue diclofenac 1% gel as needed Continue lidocaine patches as needed For abdominal bloating: Try adding calcium carbonate carbonate 500 mg, 2 tabs q4-6 hrs prn. Pt to follow-up in 9-12 months or sooner prn. Medications: New calcium carbonate (Tums) take with full glass of water 400 mg (2 x 200 mg calcium (500 mg)) PO Q4-6H PRN 120 tabs 3RF dyspepsia 30 days Changed From magnesium oxide may hold for loose stools 400 mg PO BEDTIME 30 days 30 tabs 6RF To magnesium oxide may hold for loose stools 400 mg PO BEDTIME 90 tabs 3RF 90 days Refilled memantine 28 mg PO DAILY 90 ea 3RF 90 days melatonin 5 - 10 mg (1 - 2 x 5 mg) PO BEDTIME PRN 180 tabs 3RF sleep 90 days riboflavin (vitamin B2) 400 mg PO DAILY 90 tabs 3RF 90 days diclofenac sodium 3% 1 appl topical BID PRN 100 grams 6RF pain 30 days lidocaine 5% (Lidoderm) apply to right upper leg for up to 12 hrs 1 patch topical DAILY 30 ea 11RF 30 days quetiapine 12.5 - 25 mg (0.5 - 1 x 25 mg) PO BID PRN 90 tabs 1RF agitation or hallucinations 90 days Coding Level of Care Code Tele Est Pt Level 4 (52654) Diagnoses Moderate vascular dementia with mood disturbance F01.B3 Dementia type: vascular dementia Dementia severity: moderate Dementia behavioral or psychological symptom: with mood disturbance Non-traumatic intracerebral ventricular hemorrhage I61.5 Cerebrovascular accident (CVA) due to other mechanism I63.89 CVA mechanism: other
--- OUTSIDE RECORDS SUMMARY | 2025-01-01 12:49 | XMS_ITS | Clinical Summary ---
Author Organization [place] [address] [facility] Building Address [address] [place] [phone] Phone Care Team Providers Care Addresser Name Role Phone Shaggy Lin MD Primary Care Provider [phone] Allergies Active Allergy Reactions Criticality Noted Date Comments Other 07/28/2022 Medications aluminum-magn esium hydroxide-sim ethicone (MAALOX) 200-200-20 mg/5 mL suspension TAKE 30 ML BY MOUTH THREE TIMES DAILY NEEDED Antacid Regular Strength 200-200-20 MG/5ML Suspension 01/25/20 24 Active diphenoxylate -atropine (LOMOTIL) 2.5-0.025 mg per tablet TAKE 1 TABLET BY MOUTH FOUR TIMES DAILY NEEDED FOR DIARRHEA 10/03/19 24 Active ondansetron (ZOFRAN) 4 mg tablet Take 1-2 Tablets by mouth every 8 hours as needed for Nausea. 03/10/20 23 Active flurbiprofen (OCUFEN) 0.03 % ophthalmic solution INSTILL 1 DROP IN BOTH EYES EVERY MORNING 01/07/20 23 Active polyethylene glycol (GaviLyte-G) 236-22.74-6.7 4 -5.86 gram solution TAKE DIRECTED BY 12/22/19 23 Active TIMOLOL MALEATE OPHT apply to the eye. Active escitalopram (LEXAPRO) 5 mg tablet Take 1 Tablet by mouth daily for 90 days. 12/29/19 23 Active simethicone (MYLICON) 125 mg chewable tablet Take 1 Tablet by mouth every 6 hours as needed for Flatulence. 12/01/19 23 Active saccharomyces boulardii (FLORASTOR) 250 mg capsule Take 1 Capsule by mouth 2 times daily. 04/14/20 22 Active diclofenac (Voltaren Arthritis Pain) 1 % topical gel Place 1 Applicatorful onto the skin 2 times daily as needed (muscle/joint pain). 01/24/20 Active travoprost (TRAVATAN Z) 0.004 % drops 1 Drop at bedtime. 01/07/20 Active ipratropium-a lbuteroL (Combivent Respimat) 20-100 mcg/actuation inhaler Inhale 1 puff by mouth 4 (four) times a day. 1 each 11 06/11/19 25 Active pantoprazole (PROTONIX) 40 mg EC tablet Take 1 tablet (40 mg total) by mouth 1 (one) time each day. Do not crush, chew, or split. 90 tablet 09/08/19 25 Active amLODIPine (NORVASC) 5 mg tablet Take 1 tablet (5 mg total) by mouth 1 (one) time each day. 90 tablet 10/31/19 25 Active apixaban (Eliquis) 2.5 mg tablet Take 1 tablet (2.5 mg total) by mouth 2 (two) times a day. 180 tablet 10/31/19 25 Active cetirizine (ZyrTEC) 10 mg tablet Take 1 tablet (10 mg total) by mouth 1 (one) time each day. 90 tablet 10/31/19 25 Active diclofenac sodium 3 % gel APPLY TOPICALLY TO THE AFFECTED AREA TWICE DAILY NEEDED FOR PAIN 100 g 10/31/19 25 Active hydrALAZINE (APRESOLINE) 10 mg tablet Take 1 tablet (10 mg total) by mouth every 8 (eight) hours. 270 tablet 10/31/19 25 Active LORazepam (ATIVAN) 0.5 mg tablet TAKE 1 TABLET(0.5 MG) BY MOUTH TWICE DAILY NEEDED FOR ANXIETY. MAX DAILY AMOUNT: 1 MG 56 tablet 10/31/19 25 Active losartan (COZAAR) 50 mg tablet Take 1 tablet (50 mg total) by mouth 1 (one) time each day. 90 tablet 1 10/31/19 25 Active meclizine (ANTIVERT) 25 mg tablet Take 1 tablet (25 mg total) by mouth 3 (three) times a day if needed for dizziness. 30 tablet 1 10/31/19 25 Active montelukast (SINGULAIR) 10 mg tablet at bedtime.TAKE 1 TABLET BY MOUTH AT BEDTIME 90 tablet 10/31/19 25 Active nutritional drink (Ensure High Protein) liquid TAKE 1 CAN BY MOUTH DAILY 90 each 10/31/19 25 Active escitalopram (LEXAPRO) 20 mg tablet Take 1 tablet (20 mg total) by mouth 1 (one) time each day. 90 each 1 12/12/19 25 2025 Active tamsulosin (FLOMAX) 0.4 mg 24 hr capsule Take 1 capsule (0.4 mg total) by mouth 1 (one) time each day. Capsules should be taken 30 minutes following the same meal each day. 90 capsule 12/12/19 25 Active memantine (NAMENDA XR) 7 mg extended release capsule Take 1 capsule (7 mg total) by mouth 1 (one) time each day. 90 capsule 1 12/12/19 25 Active fluticasone propionate (FLONASE) 50 mcg/actuation nasal spray SHAKE GENTLY. BEFORE USE, PRIME PUMP. AFTER USE, CLEAN TIP AND PUT LID BACK ON. INSTILL 1 SPRAY IN EACH NOSTRIL DAILY. 16 g 3 01/02/20 25 Active memantine (NAMENDA XR) 7 mg extended release capsule Take by mouth. 2024 Discontinued(R eorder) tamsulosin (FLOMAX) 0.4 mg 24 hr capsule Take 1 capsule (0.4 mg total) by mouth 1 (one) time each day. Capsules should be taken 30 minutes following the same meal each day. 90 capsule 09/08/19 25 2024 Discontinued(R eorder) fluticasone propionate (FLONASE) 50 mcg/actuation nasal spray Shake gently. Before first use, prime pump. After use, clean tip and replace cap.USE 1 SPRAY NASALLY DAILY 16 g 10/31/19 25 2024 Discontinued Active Problems Problem Noted Date Diagnosed Date Pulmonary embolism without a cute cor pulmonale ([facility] V24, [facility] V28) 08/10/2023 Nontraumatic intraventricula r intracerebral hemorrhage ([facility] V24, [facility] V28) 01/24/2023 Hallucinations 02/01/2022 Cognitive decline 02/01/2022 Moderate vascular dementia ([facility] V24, [facility] V28) 02/01/2022 Seasonal allergies 06/17/2021 Chronic diarrhea 11/16/2018 Gastroesophageal reflux disease without esophagi tis 03/23/2017 Pulmonary nodules/lesions, multiple 12/28/2013 Overview (03/14/2024): 6-7mm RML first seen -12, Lingular nodule too see then, no change in either over 2 yrs Anxiety and depression 11/12/2013 Learning disability 09/07/2013 Prostate cancer ([facility] V24, [facility] V28) 01/05 HTN (hypertension) 11/18/2010 Encounters Date Type Department Care Team Description 12/11/2024 3:00 PM EDT Telemedicine [facility] [address] [place] [address] Shaggy Lin MD Recurrent major depressive disorder, remission status unspecified ([facility] V24) (Primary Dx); Primary hypertension; Moderate vascular dementia with anxiety ([facility] V24, [facility] V28) from Last 3 Months Immunizations Name Administration Dates Next Due Influenza trivalent, 0.5mL ( Fluzone High-dose) 65yo and older 04/14/2022,03/18/2021,02/27/2018,02/11 Influenza trivalent, with pr eservative (Fluzone; Afluria) 6mo and older 04/23/2014 PPD Test 09/07/2013 Pneumococcal conjugate 13 va lent (Prevnar 13, PCV13) 2mo and older 09/30/2015 Pneumococcal polysaccharide 23 valent (Pneumovax 23) 2yo and older 11/18/2010 Tdap Tetanus diptheria acell ular pertussis (Boostrix; Adacel) 7yo and older 03/02/2018 Surgical History Surgery Date Site/Laterality Comments EYE SURGERY PROCEDURE: HISTORICAL EYE SURGERY; COMMENT: GLAUCOMA EXCISION BENIGN SKIN LESION TRUNK / ARM / LEG PROCEDURE: ME EXCISION TUMOR SOFT TISSUE BACK/FLANK SUBQ <3CM ESOPHAGOGASTRODUODENOSCOPY 12/31/13 PROCEDURE: ME ESOPHAGOGASTRODUODENOSCOPY TRANSORAL DIAGNOSTIC; COMMENT: mild antral gastritis; negative MELANIA and nl duodenal biopsies COLONOSCOPY W/ BIOPSIES 04/01/14 PROCEDURE: ME COLONOSCOPY W/BIOPSY SINGLE/MULTIPLE; COMMENT: nl, random bx to r/o micro. colitis-> neg for micro colitis, nl mucosa CHOLECYSTECTOMY 06/2012 PROCEDURE: HISTORICAL CHOLECYSTECTOMY Medical History Medical History Date Comments Unspecified essential hypertension DX:Unspecified essential hypertension Unspecified glaucoma(365.9) DX:U nspecified glaucoma(365.9) Gastroesophageal reflux dise ase without esophagitis 03/23/2017 DX:Gastroesophageal reflux d isease without esophagitis Epigastric pain DX:Epigastric pa in Irritable bowel syndrome DX:Irri table bowel syndrome Diarrhea DX:Diarrhea Family History Medical History Relation Name Comments Blindness Neg Hx Cataracts Neg Hx Glaucoma Neg Hx Macular degeneration Neg Hx Strabismus Neg Hx Relation Name Status Comments Brother 1 Alive Brother 2 Alive Brother 3 Alive Brother 4 Alive Father Mother Sister 1 Alive Sister 2 Alive Sister 3 Alive Sister 4 Alive Sister 5 Alive Social History Tobacco Use Types Packs/Day Years Used Date Smoking Tobacco: Former Cigarettes Q uit: 06/06/1999 Smokeless Tobacco: Never Tobacco Cessation:Counseling Given: Not Answered Alcohol Use Standard Drinks/Week Comments No 0 (1 standard drink = 0.6 oz pur e alcohol) Sex and Gender Information Value Date Recorded Sex Assigned at Not on file Legal Sex Male 2:14 AM EST Gender Identity Not on file Sexual Orientation Not on file Obstetrics History Last Filed Vital Signs Vital Sign Reading Time Taken Comments Blood Pressure 144/82 04/24/2024 1:27 PM EST Pulse 66 04/24/2024 1:27 PM EST Temperature - - Respiratory Rate - - Oxygen Saturation 100% 03/15/2024 12: 03 PM EDT with 2 liter of o2 Inhaled Oxygen Concentration - - Weight 54.4 kg (120 lb) 04/24/2024 1:27 PM EST Height 160 cm (5' 3 ) 04/24/2024 1:27 PM EST Body Mass Index 21.26 04/24/2024 1:27 PM EST Plan of Treatment Health Maintenance Due Date Last Done Comments COVID-19 Vaccine (#1) 1945 Zoster Vaccines (1 of 2) 04/12/2005 02/15/2005 RSV Immunization Adult Patients (1 - 1-dose 75+ series) 2013 Falls Risk Assessment 05/15/2022 Social Influencers of Health Screening 05/15/2022 Depression Screening 06/06/2024 Influenza Vaccine (#1) 2025 , 03/18/2021, 02/27/2018, Additional history exists Hypertension/CHF/CAD Annual BMP Blood Test 04/24/2025 04/24/2024, 12/01/2023, 12/01/2023 DTaP,Tdap,and Td Vaccines (3 - Td or Tdap) 03/02/2028 03/02/2018, 02/15/2005 Cholesterol Screening (Lipid Panel) 04/24/2029 04/24/2024, 12/01/2023, 12/01/2023 Varicella Vaccines Aged Out 02/15/2005 No longer eligible based on patient's age to complete this topic Pneumococcal Vaccine: 50+ Years Completed 09/30/2015, 11/18/2010, 02/15/2005 HIB Vaccines Aged Out No longer eligi ble based on patient's age to complete this topic HPV Vaccines Aged Out No longer eligi ble based on patient's age to complete this topic Hepatitis A Vaccines Aged Out No long er eligible based on patient's age to complete this topic Hepatitis B Vaccines Aged Out No long er eligible based on patient's age to complete this topic IPV Vaccines Aged Out No longer eligi ble based on patient's age to complete this topic MMR Vaccines Aged Out No longer eligi ble based on patient's age to complete this topic Meningococcal ACWY Vaccine Aged Out N o longer eligible based on patient's age to complete this topic Meningococcal B Vaccine Aged Out No l onger eligible based on patient's age to complete this topic RSV Immunization Patients Under 20 months Aged Out No longer eligible based on patient's age to complete this topic Procedures Procedure Name Priority Date/Time Associated Diagnosis Comments COMPREHENSIVE METABOLIC PANEL Routine 04/24/2024 2:03 PM EST Elevated glucose LIPID PANEL WITH REFLEX TO DIRECT LDL Routine 04/24/2024 2:03 PM EST Hypertension, unspecified type Prostate cancer (CMS/HCC V24, CMS/HCC V28) Cognitive decline from Last 3 Months or Most Recently Relevant to Health Maintenance Results * (ABNORMAL) Lipid panel with reflex to direct LDL (04/24/2024 2:03 PM EST) Cholesterol 165 0 - 200 mg/dL LAB CHEMISTRY METHOD 04/24/2024 6:27 PM [facility] Triglycerides 166(H) 0 - 150 mg/dL LAB CHEMISTRY METHOD 04/24/2024 6:27 PM [facility] HDL 37(L) >=40 mg/dL LAB CHEMISTRY METHOD 04/24/2024 6:27 PM [facility] LDL Calculated 95 0 - 100 mg/dL LAB CHEMISTRY METHOD 04/24/2024 6:27 PM [facility] VLDL Cholesterol Loc 33.2 mg/dL LAB CHEMISTRY METHOD 04/24/2024 6:27 PM [facility] Non HDL Chol. (LDL+VLDL) 128 <145 mg/dL LAB CHEMISTRY METHOD 04/24/2024 6:27 PM [facility] Chol/HDL Ratio 4.5(H) 0.0 - 4.4 LAB CHEMISTRY METHOD 04/24/2024 6:27 PM [facility] Blood Venous blood specimen / Unknown Venipuncture / Unknown 04/24/2024 2:03 PM EST 04/24/2024 2:03 PM EST us Shaggy Lin MD LAB BLOOD ORDERABLES Final Res ult [facility] [address] [place] [address], * (ABNORMAL) Comprehensive metabolic panel (04/24/2024 2:03 PM EST) Sodium 143 133 - 145 mmol/L LAB CHEMISTRY METHOD 04/24/2024 6:27 PM [facility] Potassium 3.7 3.5 - 5.5 mmol/L LAB CHEMISTRY METHOD 04/24/2024 6:27 PM [facility] Chloride 109 96 - 110 mmol/L LAB CHEMISTRY METHOD 04/24/2024 6:27 PM [facility] CO2 28 21 - 32 mmol/L LAB CHEMISTRY METHOD 04/24/2024 6:27 PM [facility] Anion Gap 6 3 - 11 LAB CHEMISTRY METHOD 04/24/2024 6:27 PM [facility] Glucose 134(H) 70 - 100 mg/dL LAB CHEMISTRY METHOD 04/24/2024 6:27 PM [facility] BUN 14 5 - 25 mg/dL LAB CHEMISTRY METHOD 04/24/2024 6:27 PM [facility] Creatinine 1.08 0.70 - 1.30 mg/dL LAB CHEMISTRY METHOD 04/24/2024 6:27 PM [facility] eGFR 67 >=60 mL/min/1. 73m2 LAB CHEMISTRY METHOD 04/24/2024 6:27 PM [facility] Comment:Calculation based on the Chronic Kidney Disease Epidemiology Collaboration (CKD-EPI) equation refit without adjustment for race. BUN/Creatinine Ratio 13.0 LAB CHEMISTRY METHOD 04/24/2024 6:27 PM [facility] Calcium 9.9 8.5 - 10.5 mg/dL LAB CHEMISTRY METHOD 04/24/2024 6:27 PM [facility] AST (SGOT) 23 10 - 42 unit/L LAB CHEMISTRY METHOD 04/24/2024 6:27 PM [facility] ALT (SGPT) 35 10 - 60 unit/L LAB CHEMISTRY METHOD 04/24/2024 6:27 PM [facility] Alkaline Phosphatase 69 42 - 121 unit/L LAB CHEMISTRY METHOD 04/24/2024 6:27 PM [facility] Total Protein 7.2 6.0 - 8.0 g/dL LAB CHEMISTRY METHOD 04/24/2024 6:27 PM [facility] Albumin 4.1 3.2 - 5.0 g/dL LAB CHEMISTRY METHOD 04/24/2024 6:27 PM [facility] Total Bilirubin 1.4 0.0 - 1.4 mg/dL LAB CHEMISTRY METHOD 04/24/2024 6:27 PM EST [facility] Blood Venous blood specimen / Unknown Venipuncture / Unknown 04/24/2024 2:03 PM EST 04/24/2024 2:03 PM EST us Shaggy Lin MD LAB BLOOD ORDERABLES Final Res ult [facility] [address] [place] [address], from Last 3 Months or Most Recently Relevant to Health Maintenance Insurance MEDICAID - [place] Care Teams Addresser Relationship Specialty Start Date End Date Shaggy Lin MD [address] [place] [phone] PCP - General Internal Medicine 04/19/24
== END 2025-01-01 12:51 | disposition home or self-care (01) ==
LOC: HO.HSMS 11:48
PROVIDERS: PCP Internal Medicine; Visit Provider Nurse Practitioner Family
DX: F01.B3 Vascular dementia, moderate, with mood disturbance (principal); I61.5 Nontraumatic intracerebral hemorrhage, intraventricular; I63.89 Other cerebral infarction
CPT/HCPCS: 99214